=== PATIENT | male | born 1930 | race Caucasian/White ===

== ENCOUNTER 2017-12-20 22:31 | Emergency (ER) | payer MEDICARE, BC ==
[~2017-12-20] VITALS: Ht 182.9 cm; Wt 90.7 kg
[~2017-12-20 22:31] MED LIST: METOPROLOL
[2017-12-20] MEDS ORDERED: LIDOCAINE 2% (UROJET) 10 ML JELLY MM ONE ×2 (23:14→23:15)
[2017-12-20 23:37] LABS: *BLOOD, URINE 3+ (NEGATIVE); *CLARITY,URINE CLOUDY (CLEAR); *COLOR,URINE RED (YELLOW); *KETONES,URINE 3+ (NEGATIVE); *UROBILINOGEN,URINE >=8.0 E.U./dl (NORMAL); LEUKOCYTE ESTERASE ,URINE 3+ (NEGATIVE); NITRITE, URINE NEGATIVE (NEGATIVE); PH,URINE 8.5 (5.0-8.0); UGLUCOSE TRACE (NEGATIVE)
[2017-12-20 23:41] LABS: *BILIRUBIN,URIN 3+ (NEGATIVE); *PROTEIN,URINE 3+ (NEGATIVE)
[2017-12-20 23:45] LABS: BACTERIA,URINE FEW /HPF (NONE SEEN); RBC,URINE TNTC /HPF (0-3); SQUAMOUS EPITHELIAL CELL,UR FEW /HPF (NONE SEEN); WBC,URINE 20-50 /HPF (0-3)
--- NOTE | 2017-12-20 23:58 | NUR ---
PT IN BED. PT WATCHING TV. PT RECEIVING NS BLADDER IRRIGATION. NO SIGNS OF DISTRESS WITNESS BY NURSE OR EXPRESSED BY PT.
[2017-12-21] MEDS ORDERED: LEVOFLOXACIN 500 MG TABLET PO ONE
[2017-12-21] MEDS ORDERED: LEVOFLOXACIN 500 MG TABLET ONE (00:02)
[2017-12-21] MEDS ORDERED: HYDROCODONE/APAP 10-325 MG TABLET ONE (00:22)
[2017-12-21] MEDS ORDERED: HYDROCODONE/APAP 10-325 MG TABLET PO ONE (00:30)
--- NOTE | 2017-12-21 00:35 | NUR ---
BLADDER IRRIGATION NOT TOLERATED WELL BY PT. 300MLS WENT TO BLADDER. 350MLS CAME OUT OF BLADDER. PT REPORTED UNBEARABLE PENIS THROUGHOUT PROCEDURE, EVEN AFTER PAIN MED WAS GIVEN. PT STATED THAT HE'D BE "SEEING UROLOGIST IN THE MORNING." MD MADE AWARE PRIOR TO DISCHARGE.
--- NOTE | 2017-12-21 01:00 | NUR ---
Patient discharged to home in stable conditon. Written and verbal after care instructions given. Patient verbalizes understanding of instructions. Patient reported reduced bladder pressure and penis pain upon discharge. Patient was taught how to use a leg bag with patient demonstration. Patient able to ambulate with the assistance of cane. Patient left with all personal belongings.
[2017-12-21 01:10] VITALS: BP 142/82
== END 2017-12-21 01:00 | disposition home or self-care (01) ==
LOC: ER 22:33
DX: N39.0 Urinary tract infection, site not specified (principal); R33.9 Retention of urine, unspecified; I10 Essential (primary) hypertension; Z79.899 Other long term (current) drug therapy
CPT/HCPCS: A4663; C1758